=== PATIENT | female | born 1995 | race Hispanic/Latino ===

== ENCOUNTER 2017-10-29 07:57 | Inpatient (IN) | payer OTHER ==
[~2017-10-29] VITALS: Ht 162.6 cm; Wt 66.7 kg
[2017-10-29 08:18] VITALS: BP 104/60
[2017-10-29 08:36] LABS: ABSOLUTE BASOPHIL COUNT 0 /CUMM (0.0-0.2); ABSOLUTE EOSINOPHIL COUNT 0.1 /CUMM (0.0-0.7); ABSOLUTE GRANULOCYTE CT 6.1 /CUMM (1.4-6.5); ABSOLUTE LYMPH COUNT 1.8 /CUMM (1.2-3.4); ABSOLUTE MONOCYTE COUNT 0.3 /CUMM (0.10-0.60); BASOPHIL % 0.3 % (0.0-2.0); EOSINOPHIL % 0.6 % (0-5); GRANULOCYTE % 73.9 % (42.2-75.2); HEMATOCRIT 32.1 % (37-47); MEAN CORPUSCULAR HGB 30.6 PG (27.0-31.0); MEAN CORPUSCULAR HGB CONC 33.8 G/DL (33.0-37.0); MEAN CORPUSCULAR VOLUME 90.4 FL (81.0-99.0); MEAN PLATELET VOLUME 9.9 FL (7.4-10.4); PLATELET COUNT 271 /CUMM (130-400); RBC DISTRIBUTION WIDTH 13.4 % (11.5-14.5); RED BLOOD CELL CT 3.55 /CUMM (4.20-5.40); WHITE BLOOD CELL COUNT 8.3 /CUMM (4.8-10.8)
--- NOTE | 2017-10-29 09:47 | PN- Obstetrical ---
Subjective Subjective: NO COMPLAINTS Objective Last 24 Hrs of Vital Signs/I&O Vital Signs Date Time Temp Pulse Resp B/P B/P Pulse O2 O2 Flow FiO2 Mean Ox Delivery Rate 10/29 0818 104/60 Intake & Output 10/29 1600 10/29 0810/29 0000 Intake Total Output Total Balance Patient 147 lb Weight Physical Exam: PE PETITE HF IN NAD HEENTPERRLA ABD SOFT NT [id number] EXT -EDEMA -HOMANS Obstetric Exam Dilation (cm): 2 Effacement (%): 70 Station: 0 Membranes: intact Fluid: unknown Multiple Gestation? No Contractions: NONE Assessment/Plan Assessment/Plan ASSESS TERM PLAN PITOCIN
--- NOTE | 2017-10-29 13:08 | PN- Obstetrical ---
Subjective Subjective: NO C/O PAIN Objective Last 24 Hrs of Vital Signs/I&O Vital Signs Date Time Temp Pulse Resp B/P B/P Pulse O2 O2 Flow FiO2 Mean Ox Delivery Rate 10/29 08 104/60 Intake & Output 10/29 1600 10/29 0810/29 0000 Intake Total Output Total Balance Patient 147 lb Weight Physical Exam: PE PETITE HF IN NAD ABD SOFT NT [id number] EXT -EDEMA Obstetric Exam Dilation (cm): 2 Effacement (%): 80 Station: 0 Membranes: AROM Fluid: clear Multiple Gestation? No Contractions: Q 2 MINUTES Assessment/Plan Assessment/Plan ASSESS TERM PLAN CONT PITOCIN
--- NOTE | 2017-10-29 18:29 | PN- Obstetrical ---
Subjective Subjective: NO COMPLAINTS Objective Last 24 Hrs of Vital Signs/I&O Vital Signs Date Time Temp Pulse Resp B/P B/P Pulse O2 O2 Flow FiO2 Mean Ox Delivery Rate 10/29 0818 104/60 Intake & Output 10/29 1600 10/29 0000 Intake Total Output Total Balance Patient 147 lb Weight Physical Exam: PE PETITE HF IN NAD ABD SOFT [id number] EXT +1 EDEMA Obstetric Exam Dilation (cm): 5 Effacement (%): 90 Station: 0 Membranes: AROM Fluid: clear Multiple Gestation? No Contractions: Q 1-2 MINUTES Assessment/Plan Assessment/Plan ASSESS TERM PREG [facility] INDUCTION PT CHOICE PLAN CONT PITOCIN OBSERVE FOR
--- NOTE | 2017-10-30 01:17 | History & Physical Pre-Op ---
General Information and HPI MD Statement: I have seen and personally examined ZUNILDA HUYNH and documented this H&P. The patient is a 22 year old F who presented with a patient stated chief complaint of 40+ weeks gestation failed induction patient presented childbirth Center today for induction with Pitocin on she progressed to fully dilated with pushing patient has variable D cells on using with rest oxygen increased IV fluid patient has an increasing temp 101.5 despite Tylenol on secondary to nonreassuring heart tracing with on persistent decelerations on patient's to undergo of tremors section []. History of Present Illness: 30-year-old 1 para 0 lady transferred to my practice at 40+ weeks with an estimated weight of 3800 g presents to childbirth center for Pitocin induction. Patient progresses to fully dilated with with persistent category 2 tracing temperature now for section Allergies/Medications Allergies: Coded Allergies: No Known Allergies (10/29/17) Past History Surgical History Pertinent Surgical History: none Past Family/Social History Psychosocial History Smoking Status: Never Smoked Exam & Diagnostic Data Last 24 Hrs of Vital Signs/I&O Vital Signs Date Time Temp Pulse Resp B/P B/P Pulse O2 O2 Flow FiO2 Mean Ox Delivery Rate 10/29 2257 100.5 10/29 0818 104/60 Intake & Output 10/30 0800 05/ 0000 10/29 1600 Intake Total Output Total Balance Patient 147 lb Weight Physical Exam: Thin female in no apparent distress HEENT anicteric PERRLA Throat negative erythema Lungs clear Abdomen soft Estimated weight 3800 g Pelvic fully dilated +1 some molding Extremities +1 edema Assessment/Plan Assessment/Plan: Assessment term nonreassuring heart tracing Plan antibiotics section As Ranked By This Provider Problem List: 1.
--- NOTE | 2017-10-30 02:37 | Operative Report ---
Operative/Inv Procedure Report Surgery Date: 10/30/17 Name of Procedure: Primary low flap transverse section via Pfannenstiel skin incision Pre-Operative Diagnosis: Term nonreassuring heart tracing failed induction Post-Operative Diagnosis: Same contracted pelvis true knot in the cord cord around the body and neck 1 direct OP otherwise normal anatomy Estimated Blood Loss: 500 Surgeon/Sweat Band Separator: Greg AHUJA,Purvi Gaxiola and Dr. Kyra Hernandez Anesthesia: block Operative/Procedure Note Note: Procedure note patient was taken to the operating room placed supine position after adequate skin testing for anesthesia after timeout had been performed and agree upon by all parties as well as patient been given antibiotics half hour prior to skin cutting skin was cut carried down to rectus fascia which was dissected bluntly as well as sharply at this point peritoneal cavity was entered high into the abdomen low blade the Yogi was placed and lower and incision the visceral peritoneum of the uterus was nicked dissected bluntly as well as sharply to develop a bladder flap the bladder flap blade was replaced to protect the bladder. The uterus was nicked entered with the back of knife dissected bluntly once was removed the field the was delivered over the abdominal wall from direct OP on the cord was reduced from the body and neck clamped 2 and cut the infant was handed to senior firmware engineer was waiting delivering to aid in resuscitation placenta was delivered manually noted to be intact was wiped clean with wet dry laps to ensure was free of adherent membranes the entry venous Pitocin as well as intramyometrial Pitocin was used for uterine contractility. The uterus was oversewn running locking suture of 0 was indicated running locking suture of 0 interrupted [id number] were used once uterus abdomen returned to the abdominal cavity for hemostasis which was apparent the abdomen was area close wants it amounts warm saline times for the peritoneum was reapproximated 0 the fascia was reapproximated to continue sutures #1 subcutaneous tissue was Bovie coagulated the skin was reapproximated liam sterile dressing was applied patient tolerated that well on urine was clear at the end the case fundus was firm mother and infant were transferred recovery room awake alert counts correct Findings: Viable female quarter around the neck 1 cord around the body 1 direct OPK clear fluid normal ovaries bilaterally and tract the pelvis
--- NOTE | 2017-10-30 20:52 | PN- OBGYN ---
Surgical Brief Attending Note Brief Attending Note: Informed by Nursing that patient with T 102. Patient states feels okay with mild cramps and no breast pain AOX3 No respiratory disress Fundus with mild tenderness Negative homans As second temperature spike for this patient in my opinoin this is endometritis so starting on empiric antibiotics. Clindamycin 900 mg Q8 hours and Gentamicin 300 mg q24 (5mg/kg/day) A 2015 meta-analysis including 40 randomized trials concluded the combination of clindamycin plus an aminoglycoside is appropriate for the treatment of endometritis and that a regimen with activity against Bacteroides fragilis and other penicillin-resistant anaerobic bacteria is better than one without [59]. Extended interval dosing of gentamicin (5 mg/kg every 24 hours) is more convenient and cost-effective and as efficacious and safe as thrice daily dosing (1.5 mg/kg intravenously every eight hours) for patients with normal renal function [60-64]. Gentamicin levels do not need to be monitored in patients receiving a single daily gentamicin dose. Patient explained on treatment plan. Once no further fever for 24-48 hours to cease same. I ordered BUN/creatinine for the am lab draw with her cbc.
[2017-10-31 08:01] LABS: ABSOLUTE BASOPHIL COUNT 0 /CUMM (0.0-0.2); ABSOLUTE EOSINOPHIL COUNT 0 /CUMM (0.0-0.7); ABSOLUTE GRANULOCYTE CT 11.7 /CUMM (1.4-6.5); ABSOLUTE LYMPH COUNT 1.1 /CUMM (1.2-3.4); ABSOLUTE MONOCYTE COUNT 0.5 /CUMM (0.10-0.60); BASOPHIL % 0.1 % (0.0-2.0); EOSINOPHIL % 0.1 % (0-5); GRANULOCYTE % 88.2 % (42.2-75.2); MEAN CORPUSCULAR HGB 30.5 PG (27.0-31.0); MEAN CORPUSCULAR HGB CONC 33.1 G/DL (33.0-37.0); MEAN CORPUSCULAR VOLUME 92.2 FL (81.0-99.0); MEAN PLATELET VOLUME 9.7 FL (7.4-10.4); PLATELET COUNT 180 /CUMM (130-400); RBC DISTRIBUTION WIDTH 14.1 % (11.5-14.5); RED BLOOD CELL CT 2.86 /CUMM (4.20-5.40)
[2017-10-31 08:46] LABS: HEMATOCRIT 26.4 % (37-47); WHITE BLOOD CELL COUNT 13.3 /CUMM (4.8-10.8)
--- NOTE | 2017-10-31 12:45 | PN- Post Delivery/GYN ---
Subjective Subjective: NO COMPLAINTS Objective Last 24 Hrs of Vital Signs/I&O AFEBRILE Physical Exam: PE THIN HF INNAD ABD SOFT NT FUNDUS FIRM NT INCISION CDI EXT - EDEMA -HOMANS LABS [id number] Assessment/Plan Assessment/Plan ASSESS S/P C/S ENDOMETRITIS PLAN CONT PO ABX PT TO CHECK TEMPS ON DISCHARGE
[2017-10-31] MEDS ORDERED: PERCOCET 5-3251 EACH PO (12:47)
[2017-10-31] MEDS ORDERED: IBUPROFEN800 M1 PO (12:47)
[2017-10-31] MEDS ORDERED: CLINDAMYCIN HC150 M1 PO (12:47)
--- NOTE | 2017-11-01 14:29 | PN- Post Delivery/GYN ---
Subjective Subjective: pos flatus Review of Systems: neg Objective Last 24 Hrs of Vital Signs/I&O vss afebrile Physical Exam: abd: soft, FF; incision c/d/i Ext: nt Assessment/Plan Assessment/Plan s/p c/s pod2 stable discharge home tomorrrow if stable Problem List: 1.
--- NOTE | 2017-12-12 16:43 | Surgical Discharge Summary ---
Visit Information Visit Dates Admission Date: 10/29/17 Discharge Date: 11/02/17 History of Present Illness Chief Complaint: Here to have my baby Surgical History Pertinent Surgical History: none Psychosocial History What is Your Primary Language? Kinyarwanda Review of Systems: -13 point review of systems as stated in the [facility] Hospital Course Course Attending Physician: Purvi Garza MD Primary Care Physician: Patient Has No Primary Care Dr Hospital Course: Patient was admitted for induction of labor she progressed 7 cm at which point the patient had increase in temperature 101 deceleration she underwent a primary low flap transverse section she did well first postoperative day she bonded well with her infant second postoperative day she tolerated oral pain medication she remained afebrile Allergies: Coded Allergies: No Known Allergies (10/29/17) Disposition Summary Disposition Principal Diagnosis: Status post primary low flap transverse section for nonreassuring heart tracing Additional Diagnosis: Chorioamnionitis Discharge Disposition: home or self care Discharge Instructions General Discharge Information Code Status: Full Code Patient's Diet: Regular Patient's Activity: Pelvic rest no driving for 2 weeks no heavy lifting for 6 weeks Follow-Up Instructions/Appts: [place] to be removed by the return nurses my office in 2 Medications at Discharge Discharge Medications: Start taking the following new medications: Clindamycin HCl (Clindamycin HCl) 150 MG CAPSULE 300 Milligram ORAL EVERY SIX HOURS Qty = 20 No Refills Comments: Last Taken: 11/02/17 Time: 0630 AM Ibuprofen (Ibuprofen) 800 MG TABLET 800 Milligram ORAL EVERY SIX HOURS NEEDED as needed for UTERINE CRAMPING Qty = 60 No Refills Comments: Last Taken: 11/02/17 Time: 0645 Oxycodone HCl/Acetaminophen (Percocet 5-325 MG Tablet) 5 MG-325 MG TABLET 1 Tablet ORAL EVERY 4 HOURS NEEDED as needed for PAIN SCALE 4-6 (MODERATE ) Qty = 30 No Refills Comments: Last Taken: 11/01/17 Time: 1049
== END 2017-11-02 11:45 | DRG 540 ==
LOC: GNO 07:57
PROVIDERS: Specialist
PROC: 10D00Z1 Extraction of Products of Conception, Low, Open Approach (ICD-10-PCS; principal; 2017-10-30)
PROC: 3E033VJ Introduction of Other Hormone into Peripheral Vein, Percutaneous Approach (ICD-10-PCS; 2017-10-30)
DX: O76 Abnormality in fetal heart rate and rhythm complicating labor and delivery (principal); Z3A.40 40 weeks gestation of pregnancy; Z37.0 Single live birth; O75.2 Pyrexia during labor, not elsewhere classified; O61.0 Failed medical induction of labor; O69.2XX0 Labor and delivery complicated by other cord entanglement, with compression, not applicable or unspecified; O86.12 Endometritis following delivery
CPT/HCPCS: 87070; 87075; 87205; GNOP; GNOS; 36415; 81001; 87071; 87086; 88307; J0131; J0690; J1580; J1650; J1885; J7120